=== PATIENT | male | born 1970 | race Caucasian/White ===

== ENCOUNTER → 2017-07-18 | Outpatient (CLI) | payer OTHER ==
--- NOTE | ~2017-07-18 | 2DMMODE ---
[facility] [address] [place] [address] 2 D/M-MODE ECHOCARDIOGRAM Name: STEFFANIEMARIUSZKOLTON HERNANDEZ Room #: REG [facility]#: [id number] Admission: 07/18/17 Attend Phys: Kt Clemons MD Discharge: Date of : 74 Date of Service: 07/18/17 1625 Report #: [id number] THIS REPORT FOR: //name// ADDENDUM APPROVED REPORT Study performed: 07/18/2017 13:25:11 EXAM: Comprehensive 2D, Doppler, and color-flow Echocardiogram Patient Location: Out-Patient Status: routine BSA: 2.11 HR: 58 bpm BP: 135/79 mmHg Rhythm: NSR Other Information Study Quality: Good Indications Chest pain. 2D Dimensions RVDd: 40.11 mm LVEF(%): 80.62 (>50%) IVSd: 13.79 (7-11mm) LVOT Diam: 18.63 (18-24mm) LVDd: 47.71 mm PWd: 11.95 (7-11mm) Ascending Ao: 33.06 (22-36mm) LVDs: 24.18 (25-40mm) Aortic Root: 32.83 mm De La Cruz's LVEF: 80.62 % Volumes Left Atrial Volume (Systole) Single Plane 4CH: 47.56 mL Single Plane 2CH: 94.19 mL LA ESV Index: 34.00 mL/m2 Aortic Valve AoV Peak Adolfo.: 2.23 m/s AO Peak Gr.: 19.90 mmHg LVOT Max P.11 mmHg LVOT Max V: 1.74 m/s TATA Vmax: 2.13 cm2 Mitral Valve E/A Ratio: 1.4 MV Decel. Time: 203.17 ms [facility] [address] [place] [address] 2 D/M-MODE ECHOCARDIOGRAM Name: STEFFANIEMARIUSZ Room #: REG [facility]#: [id number] Admission: 07/18/17 Attend Phys: Kt Clemons MD Discharge: Date of : 74 Date of Service: 07/18/17 1625 Report #: [id number] MV E Max Adolfo.: 1.19 m/s MV A Adolfo.: 0.83 m/s MV PHT: 58.92 ms IVRT: 73.82 ms Pulmonary Valve PV Peak Adolfo.: 1.31 m/s PV Peak Gr.: 6.91 mmHg Pulmonary Vein P Vein S: 0.44 m/s Tricuspid Valve TR Peak Adolfo.: 2.06 m/s RAP Estimate: 5.00 mmHg TR Peak Gr.: 16.93 mmHg PA Pressure: 22.00 mmHg Left Ventricle The left ventricle is normal size. There is normal LV segmental wall motion.a Mild concentric left ventricular hypertrophy. The left ventricular systolic function is normal. LVEF is 60-65%. Right Ventricle The right ventricle is normal size. The right ventricular systolic function is normal. Atria The left atrium size is normal. The right atrium size is normal. Aortic Valve The aortic valve is normal in structure. Trace aortic regurgitation. There is no aortic valvular stenosis. Mitral Valve The mitral valve is normal in structure. Trace mitral regurgitation. Tricuspid Valve The tricuspid valve is normal in structure. Trace tricuspid regurgitation. Estimated PAP is 20-25mmHg. Pulmonic Valve The pulmonary valve is normal in structure. There is no pulmonic valvular regurgitation. Great Vessels [facility] [address] [place] [address] 2 D/M-MODE ECHOCARDIOGRAM Name: MARIUSZ VALIENTE MARY Room #: REG [facility]#: [id number] Admission: 07/18/17 Attend Phys: Kt Clemons MD Discharge: Date of : 74 Date of Service: 07/18/17 1625 Report #: [id number] The aortic root is normal in size. There appears to be a small calcified mass just above or at the level of the aortic valve. IVC is normal in size and collapses >50% with inspiration. Pericardium There is no pericardial effusion. <Conclusion> The left ventricle is normal size. Mild concentric left ventricular hypertrophy. The left ventricular systolic function is normal. The right ventricle is normal size. The left atrium size is normal. Trace aortic regurgitation. Trace mitral regurgitation. Trace tricuspid regurgitation. Estimated PAP is 20-25mmHg. There is no pericardial effusion. There appears to be a small calcified mass just above or at the level of the aortic valve. <ELECTRONICALLY SIGNED> By: Kt Clemons MD 07/18/17 1625 1625 1625 Kt Clemons MD /INF
--- NOTE | ~2017-07-18 | EXE ---
[facility] [employer] [email or web address] [address] STRESS ECHOCARDIOGRAM Name: MARIUSZ VALIENTE Room #: REG [facility]#: [id number] Admission: 07/18/17 Attend Phys: Kt Clemons MD Discharge: Date of : 74 Date of Service: 07/18/17 1540 Report #: [id number] THIS REPORT FOR: //name// APPROVED REPORT Exam: Stress Echocardiogram Indication: Chest pain Patient Location: Out-Patient Stress Nurse: Nafisa Mendez RN Status: routine Ht: 5 ft 11 in HR: 58 bpm BP: 135/79 mmHg Rhythm: NSR Medical History Medical History: HTN Medications: Listed on sheet Allergies: No known drug allergies Procedure The patient underwent an Exercise Stress Test using the Bryn Protocol. Blood pressure, heart rate, and EKG were monitored. An Echocardiogram was performed by trace evidence technician in four stages in quad fashion. At peak stress, four selected images were obtained and placed side by side with resting images for comparison. Stress Test Details Stress Test: Exercise stress testing was performed using a Bryn protocol. HR Resting HR: 58 bpm Max Heart Rate (APMHR): 176 bpm Max HR Achieved: 176 bpm Target HR (85% APMHR): 149 bpm % of APMHR: 100 Recovery HR: 85 bpm HR response to stress: Normal HR response to stress BP Resting BP: 135/79 mmHg Max BP: 190/68 mmHg Recovery BP: 134/78 mmHg ECG Resting ECG: Sinus Rhythm Stress ECG: Sinus Rhythm, NSSTT changes [facility] [place] [address] [place] [address] STRESS ECHOCARDIOGRAM Name: MARIUSZ VALIENTE MARY Room #: REG [facility]#: [id number] Admission: 07/18/17 Attend Phys: Kt Clemons MD Discharge: Date of : 74 Date of Service: 07/18/17 1540 Report #: [id number] ST Change: Non-ischemic Maximum ST Deviation: 0.5 mm Clinical Reason for Termination: Completed protocol/moderate fatigue Stress Symptoms: None Exercise duration: 16 min 13 sec Highest Stage Achieved: Stage 6: 5.5 mph at 20% grade. Exercise capacity: 20.30 METs Pre-Stress Echo The resting Echocardiogram showed normal left ventricular contractility with an estimated Ejection Fraction of about 60-65%. Trivial MR, TR, AI. Normal wall motion in all segments on baseline images. Post-Stress Echo The stress Echocardiogram showed normal left ventricular contractility with an estimated Ejection Fraction of about >70%. Normal augmentation of wall motion in all segments on post stress images. Clinical No clinical or ECG evidence for ischemia. Conclusion Clinical Response: Non-ischemic Exercise Capacity: Superior Stress ECG Response: Non-ischemic Stress Echo Images: Non-ischemic The left ventricle is normal in size and wall thickness in both the rest and stress images. Other Information Study Quality: Good <Conclusion> The left ventricle is normal in size and wall thickness in both the rest and stress images. <ELECTRONICALLY SIGNED> By: Kt Clemons MD 07/18/17 1540 39 39 Kt Clemons MD /INF
== END ==
LOC: CV 12:55 → NUC 12:55
DX: I10 Essential (primary) hypertension (principal)